=== PATIENT | female | born 1995 | race Caucasian/White ===

== ENCOUNTER → 2016-07-08 | Outpatient (CLI) | payer OTHER ==
[~2016-07-08] MED LIST: ETON1IMP2
[2016-07-08 18:41] LABS: HEPATITIS B AB POS
[2016-07-08 19:42] LABS: ALT/SGPT 32 U/L (12-78); AST/SGOT 32 U/L (15-37)
[2016-07-08 21:13] LABS: LYME DISEASE AB IGG NEG (NEG); LYME DISEASE AB IGM NEG (NEG)
[2016-07-12 17:09] LABS: EPSTEIN BARR VIR CAPSID IGG 3.35 INDEX
== END | disposition home or self-care (01) ==
LOC: C.LAB 17:29
PROVIDERS: ATTEND Nurse Practitioner Family
DX: R68.89 Other general symptoms and signs (principal); J02.9 Acute pharyngitis, unspecified